=== PATIENT | female | born 1955 | race Caucasian/White ===

== ENCOUNTER → 2023-09-12 08:27 | Outpatient (REF) | payer MEDICARE, OTHER, SELFPAY ==
[2023-09-12 09:13] LABS: Hematocrit 37.9 % (37.0-47.0); Mean Corp Hgb Conc. 34.3 g/dL (33.0-37.0); Mean Corpuscular Hgb 30.2 pg (27.0-31.0); Mean Corpuscular Volume 87.9 fL (81.0-99.0); Mean Platelet Volume 9.5 fL (7.4-10.4); Platelet Count 278 10^3/uL (130-400); Red Blood Cell Count 4.31 10^6/uL (4.20-5.40); Red Cell Dist. Width 13.4 % (11.5-14.5); White Blood Cell Count 5.6 10^3/uL (4.8-10.8)
== END ==
LOC: REG 08:27
PROVIDERS: ATTENDING PHYSICIAN Otolaryngology Facial Plastic Surgery; FAMILY PHYSICIAN Physician Assistant Medical
DX: G47.33 Obstructive sleep apnea (adult) (pediatric) (principal); Z01.818 Encounter for other preprocedural examination
CPT/HCPCS: 36415; 85027; 93005

== ENCOUNTER → 2023-09-28 06:32 | Day surgery (SDC) | payer MEDICARE, OTHER, SELFPAY ==
[2023-09-28 14:44] VITALS: BP 118/74
[2023-09-28 15:02] VITALS: BMI 24.8
[2023-09-28] MEDS: AFRIN NASAL SPRAY 2 SPRAYS NASAL (15:15)
[2023-09-28 16:00] VITALS: BP 117/78
[2023-09-28 16:15] VITALS: BP 114/74
== END ==
LOC: SDS 06:32
PROVIDERS: ATTENDING PHYSICIAN Otolaryngology Facial Plastic Surgery
DX: G47.33 Obstructive sleep apnea (adult) (pediatric) (principal); Z87.19 Personal history of other diseases of the digestive system
CPT/HCPCS: 42975

== ENCOUNTER → 2023-10-22 11:04 | Outpatient (REF) | payer MEDICARE, OTHER, SELFPAY | LOC: WDC 11:04 | PROVIDERS: ATTENDING PHYSICIAN Surgery | DX: N63.13 Unspecified lump in the right breast, lower outer quadrant (principal); N63.11 Unspecified lump in the right breast, upper outer quadrant | CPT/HCPCS: 19000; 76942 ==

== ENCOUNTER 2023-11-09 06:07 | Day surgery (SDC) | payer MEDICARE, OTHER, SELFPAY ==
[2023-11-09] VITALS (15 sets, daily range): BP systolic 113–144; BP diastolic 68–98; BMI 25.1
[2023-11-09] MEDS: NORMOSOL-R 1000 IV (06:30)
[2023-11-09] MEDS: TYLENOL 650 MG PO (14:30)
== END 2023-11-09 15:30 | disposition home or self-care (01) ==
LOC: SDS 06:07
PROVIDERS: ATTENDING PHYSICIAN Otolaryngology Facial Plastic Surgery
DX: G47.33 Obstructive sleep apnea (adult) (pediatric) (principal); Z68.25 Body mass index [BMI] 25.0-25.9, adult
CPT/HCPCS: 64582; 71046; C1713; C1778; C1787

== ENCOUNTER → 2024-05-08 09:20 | Outpatient (REF) | payer MEDICARE, OTHER, SELFPAY | LOC: DHSLP 09:20 | PROVIDERS: ATTENDING PHYSICIAN Internal Medicine Critical Care Medicine; FAMILY PHYSICIAN Physician Assistant Medical | DX: G47.19 Other hypersomnia (principal); R06.83 Snoring | CPT/HCPCS: 95810 ==

== ENCOUNTER → 2024-10-17 11:36 | Outpatient (REF) | payer MEDICARE, OTHER, SELFPAY | LOC: WDC 11:36 | PROVIDERS: ATTENDING PHYSICIAN Obstetrics & Gynecology; FAMILY PHYSICIAN Physician Assistant Medical | DX: Z12.31 Encounter for screening mammogram for malignant neoplasm of breast (principal) | CPT/HCPCS: 77063; 77067 ==

== ENCOUNTER → 2025-07-01 13:49 | Outpatient (REF) | payer MEDICARE, OTHER, SELFPAY | LOC: HWRAD 13:49 | PROVIDERS: ATTENDING PHYSICIAN Physician Assistant Medical | DX: E78.2 Mixed hyperlipidemia (principal); Z82.49 Family history of ischemic heart disease and other diseases of the circulatory system | CPT/HCPCS: 75571 ==